=== PATIENT | male | born 1950 | race African-American/Black ===

== ENCOUNTER 2017-12-08 14:18 | Inpatient (IN) | payer MEDICARE, MEDICAID ==
[~2017-12-08] VITALS: Ht 175.3 cm; Wt 67.1 kg
[~2017-12-08 14:18] MED LIST: AMLO2.5T45 PO; ASPI-1159 PO; CITA10TA16 PO; DONE5TAB33 PO; FISH GT; LORA0.5T2 PO
[2017-12-08] MEDS ORDERED: LORAZEPAM 2MG/ML CPJ IM STA (15:37)
[2017-12-08] MEDS ORDERED: OLANZAPINE 10 MG/VIAL IM ONE (15:45)
[2017-12-08 18:32] LABS: BASOPHILS % 1.2 % (0.0-2.0); EOSINOPHILS % 8.1 % (0.0-5.0); HEMATOCRIT. 40.8 % (42.0-52.0); HEMOGLOBIN. 14.1 g/dL (14.0-18.0); LYMPHOCYTES % 50.4 % (20.0-50.0); MEAN CORPUSCULAR VOLUME 89.7 fL (80.0-94.0); MEAN PLATELET VOLUME 7.8 fl (7.4-10.4); MONOCYTES % 6.6 % (2.0-8.0); NEUTROPHILS % 33.7 % (40.0-76.0); PLATELET 249 x1000/uL (130-400); RED BLOOD CELL COUNT 4.55 mill/uL (4.7-6.1); RED CELL DISTRIBUTION WIDTH 14.1 % (11.6-14.6)
[2017-12-08 18:36] LABS: CHLORIDE 104 mEq/L (98-107)
[2017-12-08 18:39] LABS: ETHANOL BLOOD < 10 mg/dL
[2017-12-08] MEDS ORDERED: MAGNESIUM/ALUMINUM HYDROXIDE/SIMETHICONE 30ML UDC PO PRN (19:45)
[2017-12-08] MEDS ORDERED: ACETAMINOPHEN 325MG TABLET PO PRN (19:45)
[2017-12-08] MEDS ORDERED: ONDANSETRON 4MG ODT PO PRN (19:45)
[2017-12-08] MEDS ORDERED: IPRATROPIUM/ALBUTEROL 0.5-3(2.5)MG/3ML NEB INH PRN (19:45)
[2017-12-08] MEDS ORDERED: CLONIDINE 0.1MG TABLET PO PRN (19:45)
[2017-12-09 02:39] VITALS: BP 134/85
[2017-12-09 02:47] VITALS: BP 134/85
[2017-12-09 04:00] VITALS: BP 115/46
[2017-12-09] MEDS: ENOXAPARIN 40MG/0.4ML SYR SUBCUT SCH (08:56)
[2017-12-09 09:26] LABS: EOSINOPHILS % 5.2 % (0.0-5.0); HEMATOCRIT. 45.5 % (42.0-52.0); HEMOGLOBIN. 15.5 g/dL (14.0-18.0); MEAN CORPUSCULAR HEMOGLOBIN 30.9 pg (28.0-32.0); MEAN CORPUSCULAR VOLUME 90.8 fL (80.0-94.0); MEAN PLATELET VOLUME 7.6 fl (7.4-10.4); MONOCYTES % 6.8 % (2.0-8.0); PLATELET 246 x1000/uL (130-400); RED BLOOD CELL COUNT 5.01 mill/uL (4.7-6.1); RED CELL DISTRIBUTION WIDTH 14.2 % (11.6-14.6)
[2017-12-09 09:31] LABS: CHLORIDE 106 mEq/L (98-107)
[2017-12-09 09:38] LABS: LDL CHOLESTEROL 64 mg/dL (5-100)
[2017-12-09 09:39] LABS: HDL CHOLESTEROL 50 mg/dL (40-59)
[2017-12-09 09:40] LABS: CREATINE KINASE 276 IU/L (39-308)
[2017-12-09 09:43] LABS: CREATINE KINASE MB FRACTION 1.3 ng/mL (0.5-3.6)
[2017-12-09 12:00] VITALS: BP 124/63
[2017-12-09] MEDS: LORAZEPAM 2MG/ML CPJ IM PRN (12:49)
[2017-12-09 13:13] LABS: AMMONIA 31 uMol/L (<32)
[2017-12-09] MEDS ORDERED: DONEPEZIL HCL 5MG TABLET PO SCH (15:45)
[2017-12-09] MEDS ORDERED: FISH OIL/OMEGA-3 FATTY ACIDS 1000MG CAPSULE PO SCH (15:45)
[2017-12-09 16:00] VITALS: BP 126/57
[2017-12-09] MEDS: FISH OIL/OMEGA-3 FATTY ACIDS 1000MG CAPSULE PO SCH ×2 (16:00→16:52)
[2017-12-09] MEDS: DONEPEZIL HCL 5MG TABLET PO SCH (16:52)
[2017-12-09] MEDS: CITALOPRAM HYDROBROMIDE 10MG TABLET PO SCH (16:52)
[2017-12-09] MEDS: ASPIRIN 81MG TABLET PO SCH (16:52)
[2017-12-09 17:40] LABS: AMMONIA 23 uMol/L (<32)
[2017-12-09 17:46] LABS: T4 FREE 1.44 ng/dL (0.76-1.46)
[2017-12-09 18:07] LABS: VITAMIN B12 SERUM 607 pg/mL (211-911)
[2017-12-09 18:14] LABS: FOLIC ACID (FOLATE) SERUM > 20.00 ng/mL (>5.38)
[2017-12-09 19:06] LABS: PROTHROMBIN TIME 10.7 sec (9.4-11.6)
[2017-12-09 20:00] VITALS: BP 122/56
[2017-12-10] VITALS: BP 150/66
[2017-12-10 04:00] VITALS: BP 142/76
[2017-12-10] MEDS: LORAZEPAM 2MG/ML CPJ IM PRN ×2 (06:52→17:29)
[2017-12-10 08:08] VITALS: BP 130/70
[2017-12-10] MEDS: ASPIRIN 81MG TABLET PO SCH (09:00)
[2017-12-10] MEDS: DONEPEZIL HCL 5MG TABLET PO SCH (09:00)
[2017-12-10] MEDS: ENOXAPARIN 40MG/0.4ML SYR SUBCUT SCH (09:00)
[2017-12-10] MEDS: CITALOPRAM HYDROBROMIDE 10MG TABLET PO SCH (09:00)
[2017-12-10] MEDS: FISH OIL/OMEGA-3 FATTY ACIDS 1000MG CAPSULE PO SCH (09:00)
[2017-12-10 09:52] LABS: BASOPHILS % 0.8 % (0.0-2.0); EOSINOPHILS % 5.8 % (0.0-5.0); HEMATOCRIT. 43.4 % (42.0-52.0); HEMOGLOBIN. 14.8 g/dL (14.0-18.0); LYMPHOCYTES % 31.8 % (20.0-50.0); MEAN CORPUSCULAR HEMOGLOBIN 30.9 pg (28.0-32.0); MEAN CORPUSCULAR VOLUME 90.8 fL (80.0-94.0); MEAN PLATELET VOLUME 7.9 fl (7.4-10.4); MONOCYTES % 6.2 % (2.0-8.0); NEUTROPHILS % 55.4 % (40.0-76.0); PLATELET 244 x1000/uL (130-400); RED BLOOD CELL COUNT 4.78 mill/uL (4.7-6.1); RED CELL DISTRIBUTION WIDTH 13.9 % (11.6-14.6)
[2017-12-10 10:09] LABS: CHLORIDE 104 mEq/L (98-107)
[2017-12-10 10:15] LABS: PHOSPHORUS 3.2 mg/dL (2.5-4.9)
[2017-12-10] MEDS ORDERED: ATOR10TA69 PO (19:20)
[2017-12-10 20:00] VITALS: BP 128/64
[2017-12-11] VITALS: BP 110/65
[2017-12-11 01:34] LABS: *AMPHETAMINES SCREEN URINE NEGATIVE (NEGATIVE)
[2017-12-11 01:35] LABS: *BARBITURATES SCREEN URINE NEGATIVE (NEGATIVE); *BENZODIAZEPINES SCREEN URINE NEGATIVE (NEGATIVE); *COCAINE SCREEN URINE NEGATIVE (NEGATIVE); METHADONE URINE SCREEN NEGATIVE (NEGATIVE); OPIATES URINE SCREEN NEGATIVE (NEGATIVE)
[2017-12-11 01:36] LABS: CANNABINOID URINE SCREEN NEGATIVE (NEGATIVE); PHENCYCLIDINE URINE SCREEN NEGATIVE (NEGATIVE)
[2017-12-11 04:00] VITALS: BP 118/70
[2017-12-11 07:22] LABS: COLOR URINE YELLOW (YELLOW)
[2017-12-11 07:23] LABS: CLARITY URINE SL HAZY (CLEAR); PH URINE 7.5 (4.5-8.0); PROTEIN URINE TRACE (NEGATIVE); SPECIFIC GRAVITY URINE 1.032 (1.005-1.030)
[2017-12-11 07:24] LABS: KETONES URINE 2+ (NEGATIVE); LEUKOCYTE ESTERASE URINE TRACE (NEGATIVE); NITRITE URINE NEGATIVE (NEGATIVE); OCCULT BLOOD URINE NEGATIVE (NEGATIVE)
[2017-12-11] MEDS: DONEPEZIL HCL 5MG TABLET PO SCH (08:26)
[2017-12-11] MEDS: CITALOPRAM HYDROBROMIDE 10MG TABLET PO SCH (08:26)
[2017-12-11] MEDS: ASPIRIN 81MG TABLET PO SCH (08:26)
[2017-12-11] MEDS: FISH OIL/OMEGA-3 FATTY ACIDS 1000MG CAPSULE PO SCH (08:26)
[2017-12-11] MEDS: ENOXAPARIN 40MG/0.4ML SYR SUBCUT SCH ×2 (08:27→08:39)
[2017-12-11 08:47] VITALS: BP 121/76
[2017-12-11 09:24] LABS: BASOPHILS % 1.4 % (0.0-2.0); EOSINOPHILS % 3.8 % (0.0-5.0); HEMATOCRIT. 43.5 % (42.0-52.0); HEMOGLOBIN. 14.9 g/dL (14.0-18.0); MEAN CORPUSCULAR VOLUME 90.4 fL (80.0-94.0); MEAN PLATELET VOLUME 7.6 fl (7.4-10.4); MONOCYTES % 4.8 % (2.0-8.0); PLATELET 232 x1000/uL (130-400); RED BLOOD CELL COUNT 4.81 mill/uL (4.7-6.1); RED CELL DISTRIBUTION WIDTH 13.9 % (11.6-14.6)
[2017-12-11 09:37] LABS: CHLORIDE 105 mEq/L (98-107)
[2017-12-11 09:44] LABS: PHOSPHORUS 2.8 mg/dL (2.5-4.9)
[2017-12-11] MEDS ORDERED: POLYETHYLENE GLYCOL 3350 (17GM) 1 DOSE PACK PO SCH (11:30)
[2017-12-11 12:22] VITALS: BP 125/81
== END 2017-12-11 16:54 | DRG 52 ==
LOC: ER 15:45 → 6WST 19:05 → EDBEDREQ 19:06 → ENRESERV 12-09 01:25
PROVIDERS: ADMIT Internal Medicine; ATTEND Internal Medicine
DX: G92 Toxic encephalopathy (principal); G30.9 Alzheimer's disease, unspecified; F02.81 Dementia in other diseases classified elsewhere, unspecified severity, with behavioral disturbance; I10 Essential (primary) hypertension; K52.9 Noninfective gastroenteritis and colitis, unspecified; E78.00 Pure hypercholesterolemia, unspecified; Z79.82 Long term (current) use of aspirin; Z86.73 Personal history of transient ischemic attack (TIA), and cerebral infarction without residual deficits; Z91.19 Patient's noncompliance with other medical treatment and regimen
CPT/HCPCS: 36415; 70450; 70551; 80048; 80053; 80061; 80305; 80307; 80329; 81003; 82140; 82550; 82553; 82607; 82746; 83036; 83735; 84100; 84439; 84443; 84481; 84484; 85025; 85610; 87040; 87086; 93005; 96372; 99285; G0482; J1650; J2060; J3490; A4315